=== PATIENT | male | born 1955 | race Caucasian/White ===

== ENCOUNTER → 2020-06-13 14:09 | Outpatient (BNVA) | payer OTHER, SELFPAY | PROVIDERS: PCP Internal Medicine; Visit Provider Urology | DX: Z76.89 Persons encountering health services in other specified circumstances (principal) ==

== ENCOUNTER → 2020-12-12 15:18 | Outpatient (BNVA) | payer OTHER, MEDICARE, SELFPAY | PROVIDERS: PCP Internal Medicine; Visit Provider Urology | DX: N40.1 Benign prostatic hyperplasia with lower urinary tract symptoms (principal); R39.12 Poor urinary stream; R35.1 Nocturia; N13.8 Other obstructive and reflux uropathy | CPT/HCPCS: 51798 ==

== ENCOUNTER → 2022-01-21 14:46 | Outpatient (BNVA) | payer OTHER, MEDICARE, SELFPAY | PROVIDERS: PCP Internal Medicine; Visit Provider Urology | DX: N40.1 Benign prostatic hyperplasia with lower urinary tract symptoms (principal); N13.8 Other obstructive and reflux uropathy; R39.12 Poor urinary stream; R35.1 Nocturia | CPT/HCPCS: 51798 ==

== ENCOUNTER 2023-01-21 14:43 | Outpatient (AMB) | payer OTHER, MEDICARE, SELFPAY ==
--- NOTE | 2023-01-21 14:57 | MHC.OFFVIS ---
Intake Intake Visit Reasons: 1 year follow up PVR Intake Note: Patient is present for PVR/ Urology Med: Finasteride, Terazosin, Antibiotic Allergy:Penicillin Blood Thinner: Warfarin PVR: 0ml Allergies lactose Allergy (Unknown, Verified 01/21/22 14:53) Unknown penicillin V Allergy (Unknown, Verified 01/21/22 14:53) Unknown Medication List - Last Reconciled 01/21/23 by Balta Colbert MD atorvastatin 80 mg PO BEDTIME diltiazem HCl ER 360 mg PO DAILY finasteride 5 mg PO DAILY 90 days gabapentin 600 mg PO TID gemfibrozil 600 mg PO BID levothyroxine 125 mcg PO DAILY metoprolol succinate ER 150 mg PO BID nortriptyline 75 mg PO BEDTIME pantoprazole 40 mg PO DAILY terazosin 5 mg PO BEDTIME 90 days triamcinolone acetonide 0.1% appl topical TID triamcinolone acetonide 0.025% appl topical warfarin 5 mg PO DAILY HPI HPI Comments History of Present Illness Details Sherif is a pleasant male. He is a patient of Dr. Raya. He is seen for the following urologic conditions - lower urinary tract symptoms PVR 0cc continues with combination therapy Main issue today is constipation - discussed MiraLax bowel prep used in colonoscopy Lower Urinary Tract Symptoms: Current visit is for further evaluation of, lower urinary tract symptoms, predominate obstructive symptoms. Current treatment includes medication - finasteride 5mg. Prior treatments include medication. Prostate Symptom Score Moderate (9-19), Bother 3. Symptoms include incomplete emptying, weak stream, urgency, and are stable. Results from testing include cystoscopy apple shaped intrusion 07/16 Prior Prostate Score moderate. PSA 03/12 0.3, 08/15 0.3, 01/17 0.3 - PSA less than one. Chance of lifetime prostate cancer less than 1%. Would only check every 5 years. Prostate volume 30-50gm. Testing at next visit will include PVR Review of Systems Const Denies chills and Denies fever(s) Card Reports no additional complaints and Denies syncope Resp Denies cough GI Denies abdominal pain and Denies heartburn Reports as per HPI and Denies change in libido Neuro Denies syncope Psych Denies change in libido Endo Denies change in libido Physical Exam Const General: cooperative, healthy appearing, comfortable and no acute distress Orientation/consciousness: patient oriented x3 HEENT Face and sinus: Yes normal facial exam Mouth: moist mucous membranes Neck Neck: Yes normal visual inspection, Yes full ROM and Yes trachea midline Chest Chest palpation & inspection: normal inspection of the chest Resp Effort & Inspection: normal respiratory effort, able to speak in complete sentences and no respiratory distress GI Inspection: Yes normal to inspection Back/Spine/Pelvis Cervical Spine: normal cervical lordosis Thoracic/Lumbar Spine: thoracic and lumbar spine normal to inspection Skin General skin exam: no rashes or lesions noted Neuro General: patient oriented x3, gait normal, tone normal and moves all extremities Extrem General: Yes normal to inspection and Yes capillary refill normal Office Procedures Post Void Residual Post Residual Void Post Void Residual (PVR): 0 [id number] Void Residual by ultrasound Results AMB Urinalysis, Automated UA Leukoctes 0 Alicia/uL Last Edit by Zelda Michelle [facility] on 01/21/23 15:13 UA Nitrite Negative Last Edit by Zelda Michelle A on 01/21/23 15:13 UA Urobilinogen 0.2 mg/dL Last Edit by Zelda Michelle [facility] on 01/21/23 15:13 UA Protein 15 mg/dL Last Edit by Zelda Michelle A on 01/21/23 15:13 UA pH 6.5 Last Edit by Zelda Michelle [facility] on 01/21/23 15:13 UA Blood 0 Vinny/uL Last Edit by Zelda Michelle A on 01/21/23 15:13 UA Specific [place] 1.010 Last Edit by Zelda Michelle [facility] on 01/21/23 15:13 UA Ketone Negative Last Edit by Zelda Michelle [facility] on 01/21/23 15:13 UA Bilirubin 0 mg/dL Last Edit by Zelda Michelle A on 01/21/23 15:13 UA Glucose 0 mg/dL Last Edit by Zelda Michelle [facility] on 01/21/23 15:13 Results Reviewed Results Reviewed: Laboratory Last Values Urine pH (Auto) 6.5 01/21/23 15:12 Specific [place] (Auto) 1.010 01/21/23 15:12 Urine Protein (Auto) 15 mg/dL 01/21/23 15:12 Glucose (UA)(Auto) 0 mg/dL 01/21/23 15:12 Urine Ketones (Auto) Negative 01/21/23 15:12 Urine Blood (Auto) 0 Vinny/uL 01/21/23 15:12 Urine Nitrite (Auto) Negative 01/21/23 15:12 Urine Bilirubin (Auto) 0 mg/dL 01/21/23 15:12 Urine Urobilinogen (Auto) 0.2 mg/dL 01/21/23 15:12 Leukocyte Esterase (Auto) 0 Alicia/uL 01/21/23 15:12 Assessment & Plan Assessment & Plan (1) Weak urinary stream: Code(s): R39.12 - Poor urinary stream (2) Nocturia more than twice per night: Code(s): R35.1 - Nocturia (3) BPH w urinary obs/LUTS: Code(s): N40.1 - Benign prostatic hyperplasia with lower urinary tract symptoms; N13.8 - Other obstructive and reflux uropathy Plan 6 month follow-up Orders: Orders AMB Urinalysis Automated Today Z13.9 - Encounter for screening, unspecified AMB Post Void Residual by ultrasound Today N13.8 - Other obstructive and reflux uropathy, N40.1 - Benign prostatic hyperplasia with lower urinary tract symptoms Medications: Changed From finasteride 5 mg PO DAILY To finasteride 5 mg PO DAILY 90 tabs 1RF 90 days Refilled terazosin 5 mg PO BEDTIME 90 caps 1RF 90 days N13.8 - Other obstructive and reflux uropathy, N40.1 - Benign prostatic hyperplasia with lower urinary tract symptoms Patient Instructions: Imaging studies, laboratory and physical exam results were discussed and reviewed in detail. No major barriers to patient understanding were identified. An opportunity to ask questions regarding the treatment plan was provided. All questions were answered. The patient expressed understanding and agreement with the above treatment plan. The patient is aware they should contact our office by phone for worsening of their current condition or the appearance of new urologic symptoms. Compliance is encouraged with any medications and followup testing that is ordered. It is a privilege to participate in the urologic care of your patient. If you have any questions or concerns regarding treatment for the above conditions, or other urologic issues, please do not hesitate to contact me. The office telephone contact is [phone]. This note is constructed using voice recognition software. While every effort has been made to ensure accuracy lpn instructor errors may have been included. Yours sincerely, Dr Balta Colbert MD, [facility] - Urology Providers of Expert, Compassionate Care for the Genitourinary System Coding Level of Care Code Est Pt Level 3 (42805) Diagnoses Weak urinary stream R39.12 Nocturia more than twice per night R35.1 BPH w urinary obs/LUTS N40.1; N13.8 CPT Codes Post Residual Void - PVR CPT Code: 04840-Tybl Void Residual by ultrasound ([id number])
== END 2023-01-21 15:43 | disposition home or self-care (01) ==
PROVIDERS: Visit Provider Urology
DX: N40.1 Benign prostatic hyperplasia with lower urinary tract symptoms (principal); R39.12 Poor urinary stream; R35.1 Nocturia; N13.8 Other obstructive and reflux uropathy
CPT/HCPCS: 99213

== ENCOUNTER → 2023-01-21 14:43 | Outpatient (BNVA) | payer OTHER, MEDICARE, SELFPAY | PROVIDERS: Visit Provider Urology | DX: R39.12 Poor urinary stream (principal); R35.1 Nocturia; N40.1 Benign prostatic hyperplasia with lower urinary tract symptoms | CPT/HCPCS: 51798 ==

== ENCOUNTER 2023-11-10 15:27 | Outpatient (AMB) | payer OTHER, MEDICARE, SELFPAY ==
--- NOTE | 2023-11-10 15:41 | A.OFFVIS_ITS ---
Intake Visit Reasons: follow up/PVR Intake Note: Patient is Present for PVR/ Urology Med: Finasteride, Terazosin Antibiotic Allergy: Penicillin Blood Thinner: Warfarin Last PVR: 0 Todays PVR: 0 Allergies lactose Allergy (Unknown, Verified 01/21/22 14:53) Unknown penicillin V Allergy (Unknown, Verified 01/21/22 14:53) Unknown Medication List - Last Reconciled 11/10/23 by Balta Colbert MD atorvastatin 80 mg PO BEDTIME diltiazem HCl ER 360 mg PO DAILY finasteride 5 mg PO DAILY 90 days gabapentin 600 mg PO TID gemfibrozil 600 mg PO BID levothyroxine 125 mcg PO DAILY metoprolol succinate ER 150 mg PO BID nortriptyline 75 mg PO BEDTIME pantoprazole 40 mg PO DAILY terazosin 5 mg PO BEDTIME 90 days triamcinolone acetonide 0.1% appl topical TID triamcinolone acetonide 0.025% appl topical warfarin 5 mg PO DAILY HPI Comments Details: Sherif is a pleasant male. He is a patient of Dr. Raya. He is seen for the following urologic conditions - lower urinary tract symptoms Continues with combination therapy May try coming off terazosin Upcoming hip replacement Minimal symptoms with urination Lower Urinary Tract Symptoms: Current visit is for further evaluation of, lower urinary tract symptoms, predominate obstructive symptoms. Current treatment includes medication - finasteride 5mg terazosin 5 mg Prior treatments include medication. Prostate Symptom Score Moderate (9-19), Bother 3. Symptoms include incomplete emptying, weak stream, urgency, and are stable. Results from testing include cystoscopy apple shaped intrusion 07/16 Prior Prostate Score moderate. PSA 03/12 0.3, 08/15 0.3, 01/17 0.3 - PSA less than one. Chance of lifetime prostate cancer less than 1%. Would only check every 5 years. Prostate volume 30-50gm. Testing at next visit will include PVR Review of Systems Const Denies chills and Denies fever(s) Card Reports no additional complaints and Denies syncope Resp Denies cough GI Denies abdominal pain and Denies heartburn Reports as per HPI and Denies change in libido Neuro Denies syncope Psych Denies change in libido Endo Denies change in libido Physical Exam Const General: cooperative, healthy appearing, comfortable and no acute distress Orientation/consciousness: patient oriented x3 HEENT Face and sinus: Yes normal facial exam Mouth: moist mucous membranes Neck Neck: Yes normal visual inspection, Yes full ROM and Yes trachea midline Chest Chest palpation & inspection: normal inspection of the chest Resp Effort & Inspection: normal respiratory effort, able to speak in complete sentences and no respiratory distress GI Inspection: Yes normal to inspection Back/Spine/Pelvis Cervical Spine: normal cervical lordosis Thoracic/Lumbar Spine: thoracic and lumbar spine normal to inspection Skin General skin exam: no rashes or lesions noted Neuro General: patient oriented x3, gait normal, tone normal and moves all extremities Extrem General: Yes normal to inspection and Yes capillary refill normal Office Procedures Post Void Residual Post Residual Void Post Void Residual (PVR): 0 [id number]-[id number] Void Residual by ultrasound Assessment & Plan Assessment & Plan (1) BPH w urinary obs/LUTS: Code(s): N40.1 - Benign prostatic hyperplasia with lower urinary tract symptoms; N13.8 - Other obstructive and reflux uropathy Category: Medical (2) Nocturia more than twice per night: Code(s): R35.1 - Nocturia Category: Medical Plan Twelve month follow-up Orders: Orders AMB Post Void Residual by ultrasound Today N13.8 - Other obstructive and reflux uropathy, N40.1 - Benign prostatic hyperplasia with lower urinary tract symptoms Prostate Specific Antigen 364 Days N13.8 - Other obstructive and reflux uropathy, N40.1 - Benign prostatic hyperplasia with lower urinary tract symptoms Medications: Refilled terazosin 5 mg PO BEDTIME 90 days 90 caps 3RF N13.8 - Other obstructive and reflux uropathy, N40.1 - Benign prostatic hyperplasia with lower urinary tract symptoms finasteride 5 mg PO DAILY 90 days 90 tabs 3RF N13.8 - Other obstructive and reflux uropathy, N40.1 - Benign prostatic hyperplasia with lower urinary tract symptoms Patient Instructions: Imaging studies, laboratory and physical exam results were discussed and reviewed in detail. No major barriers to patient understanding were identified. An opportunity to ask questions regarding the treatment plan was provided. All questions were answered. The patient expressed understanding and agreement with the above treatment plan. The patient is aware they should contact our office by phone for worsening of their current condition or the appearance of new urologic symptoms. Compliance is encouraged with any medications and followup testing that is ordered. It is a privilege to participate in the urologic care of your patient. If you have any questions or concerns regarding treatment for the above conditions, or other urologic issues, please do not hesitate to contact me. The office telephone contact is [phone]. This note is constructed using voice recognition software. While every effort has been made to ensure accuracy supervisor electrolytic tinning errors may have been included. Yours sincerely, Dr Balta Colbert MD, [facility] - Urology Providers of Expert, Compassionate Care for the Genitourinary System Coding Level of Care Code Est Pt Level 4 (97267) Diagnoses BPH w urinary obs/LUTS N40.1; N13.8 Nocturia more than twice per night R35.1 CPT Codes Post Residual Void - PVR CPT Code: 43086-Azlk Void Residual by ultrasound ([id number])
== END 2023-11-10 16:13 | disposition home or self-care (01) ==
PROVIDERS: PCP Internal Medicine; Visit Provider Urology
DX: N40.1 Benign prostatic hyperplasia with lower urinary tract symptoms (principal); N13.8 Other obstructive and reflux uropathy; R35.1 Nocturia
CPT/HCPCS: 99214

== ENCOUNTER → 2023-11-10 15:27 | Outpatient (BNVA) | payer OTHER, MEDICARE, SELFPAY | PROVIDERS: PCP Internal Medicine; Visit Provider Urology | DX: N40.1 Benign prostatic hyperplasia with lower urinary tract symptoms (principal); N13.8 Other obstructive and reflux uropathy; R35.1 Nocturia; Z79.899 Other long term (current) drug therapy | CPT/HCPCS: 51798 ==

== ENCOUNTER 2024-11-09 15:41 | Outpatient (AMB) | payer OTHER, MEDICARE, SELFPAY ==
--- NOTE | 2024-11-09 15:46 | MHC.OFFVIS ---
Intake Visit Reasons: 1yr follow up Intake Note: Patient is Present for 1Y F/U Urology Med: Finasteride, Terazosin Antibiotic Allergy: Penicillin Blood Thinner: Warfarin It Trainer Required: No Allergies lactose Allergy (Unknown, Verified 11/09/24 15:48) Unknown penicillin V Allergy (Unknown, Verified 11/09/24 15:48) Unknown HPI Comments Details: Sherif is a pleasant male. He is a patient of Dr. Raya. He is seen for the following urologic conditions - lower urinary tract symptoms Continues with combination therapy Coming off terazosin not successful Lower Urinary Tract Symptoms: Current visit is for further evaluation of, lower urinary tract symptoms, predominate obstructive symptoms. Current treatment includes medication - finasteride 5mg terazosin 5 mg Prior treatments include medication. Prostate Symptom Score Moderate (9-19), Bother 3. Symptoms include incomplete emptying, weak stream, urgency, and are stable. Results from testing include cystoscopy apple shaped intrusion 07/16 Prior Prostate Score moderate. PSA 03/12 0.3, 08/15 0.3, 01/17 0.3 - PSA less than one. Chance of lifetime prostate cancer less than 1%. Would only check every 5 years. Prostate volume 30-50gm. Testing at next visit will include PVR Review of Systems Const Denies chills and Denies fever(s) Card Reports no additional complaints and Denies syncope Resp Denies cough GI Denies abdominal pain and Denies heartburn Reports as per HPI and Denies change in libido Neuro Denies syncope Psych Denies change in libido Endo Denies change in libido Physical Exam Const General: cooperative, healthy appearing, comfortable and no acute distress Orientation/consciousness: patient oriented x3 HEENT Face and sinus: Yes normal facial exam Mouth: moist mucous membranes Neck Neck: Yes normal visual inspection, Yes full ROM and Yes trachea midline Chest Chest palpation & inspection: normal inspection of the chest Resp Effort & Inspection: normal respiratory effort, able to speak in complete sentences and no respiratory distress GI Inspection: Yes normal to inspection Back/Spine/Pelvis Cervical Spine: normal cervical lordosis Thoracic/Lumbar Spine: thoracic and lumbar spine normal to inspection Skin General skin exam: no rashes or lesions noted Neuro General: patient oriented x3, gait normal, tone normal and moves all extremities Extrem General: Yes normal to inspection and Yes capillary refill normal Results AMB Urinalysis, Automated UA Leukoctes 0 Alicia/uL Last Edit by Evens Mcdaniels [facility] on 11/09/24 15:59 UA Nitrite Negative Last Edit by Evens Mcdaniels [facility] on 11/09/24 15:59 UA Urobilinogen 0.2 mg/dL Last Edit by Evens Mcdaniels [facility] on 11/09/24 15:59 UA Protein 15 mg/dL Last Edit by Evens Mcdaniels [facility] on 11/09/24 15:59 UA pH 6.0 Last Edit by Evens Mcdaniels, [facility] on 11/09/24 15:59 UA Blood 0 Vinny/uL Last Edit by Evens Mcdaniels [facility] on 11/09/24 15:59 UA Specific [place] 1.010 Last Edit by Evens Mcdaniels [facility] on 11/09/24 15:59 UA Ketone Negative Last Edit by Evens Mcdaniels [facility] on 11/09/24 15:59 UA Bilirubin 0 mg/dL Last Edit by Evens Mcdaniels [facility] on 11/09/24 15:59 UA Glucose 0 mg/dL Last Edit by Evens Mcdaniels [facility] on 11/09/24 15:59 Results Reviewed Results Reviewed: Laboratory Last Values Urine pH (Auto) 6.0 11/09/24 15:58 Specific [place] (Auto) 1.010 11/09/24 15:58 Urine Protein (Auto) 15 mg/dL 11/09/24 15:58 Glucose (UA)(Auto) 0 mg/dL 11/09/24 15:58 Urine Ketones (Auto) Negative 11/09/24 15:58 Urine Blood (Auto) 0 Vinny/uL 11/09/24 15:58 Urine Nitrite (Auto) Negative 11/09/24 15:58 Urine Bilirubin (Auto) 0 mg/dL 11/09/24 15:58 Urine Urobilinogen (Auto) 0.2 mg/dL 11/09/24 15:58 Leukocyte Esterase (Auto) 0 Alicia/uL 11/09/24 15:58 Assessment & Plan Assessment & Plan (1) Nocturia more than twice per night: Code(s): R35.1 - Nocturia Category: Medical (2) BPH w urinary obs/LUTS: Code(s): N40.1 - Benign prostatic hyperplasia with lower urinary tract symptoms; N13.8 - Other obstructive and reflux uropathy Category: Medical Plan One year follow-up Orders: Orders AMB Urinalysis Automated Today Z13.9 - Encounter for screening, unspecified Medications: Refilled terazosin 5 mg PO BEDTIME 90 days 90 caps 3RF N13.8 - Other obstructive and reflux uropathy, N40.1 - Benign prostatic hyperplasia with lower urinary tract symptoms finasteride 5 mg PO DAILY 90 days 90 tabs 3RF N13.8 - Other obstructive and reflux uropathy, N40.1 - Benign prostatic hyperplasia with lower urinary tract symptoms Patient Instructions: This note is constructed using voice recognition software. While every effort has been made to ensure accuracy modeling director errors may have been included. Imaging studies, laboratory and physical exam results were discussed and reviewed in detail. No major barriers to patient understanding were identified. An opportunity to ask questions regarding the treatment plan was provided. All questions were answered. The patient expressed understanding and agreement with the above treatment plan. The patient is aware they should contact our office by phone for worsening of their current condition or the appearance of new urologic symptoms. Compliance is encouraged with any medications and followup testing that is ordered. It is a privilege to participate in the urologic care of your patient. If you have any questions or concerns regarding treatment for the above conditions, or other urologic issues, please do not hesitate to contact me. The office telephone contact is [phone]. Sincerely, Dr Balta Colbert MD, [facility] - Urology Compassionate Specialist Care for the Genitourinary System Coding Level of Care Code Est Pt Level 4 (75269) Complex EM visit Add On G2211 Diagnoses Nocturia more than twice per night R35.1 BPH w urinary obs/LUTS N40.1; N13.8
== END 2024-11-09 16:52 | disposition home or self-care (01) ==
LOC: HO.HUSH 15:42
PROVIDERS: PCP Internal Medicine; Visit Provider Urology
DX: N40.1 Benign prostatic hyperplasia with lower urinary tract symptoms (principal); R35.1 Nocturia; N13.8 Other obstructive and reflux uropathy; Z13.9 Encounter for screening, unspecified
CPT/HCPCS: 99214

== ENCOUNTER → 2024-11-09 15:41 | Outpatient (BNVA) | payer OTHER, MEDICARE, SELFPAY | PROVIDERS: PCP Internal Medicine; Visit Provider Urology | DX: N40.1 Benign prostatic hyperplasia with lower urinary tract symptoms (principal); N13.8 Other obstructive and reflux uropathy; R35.1 Nocturia | CPT/HCPCS: 81003 ==

== ENCOUNTER → 2025-01-31 10:17 | Outpatient (BNVA) | payer OTHER, MEDICARE, SELFPAY | PROVIDERS: PCP Internal Medicine; Visit Provider Urology | DX: N40.1 Benign prostatic hyperplasia with lower urinary tract symptoms (principal); N13.8 Other obstructive and reflux uropathy | CPT/HCPCS: 51798 ==

== ENCOUNTER 2025-03-21 14:38 | Outpatient (AMB) | payer OTHER, MEDICARE, SELFPAY ==
--- NOTE | 2025-03-21 14:35 | A.OFFVIS_ITS ---
Intake Visit Reasons: 6w/PVR Intake Note: Patient is Present for 6 wk F/U Urology Med: Finasteride, Terazosin Antibiotic Allergy: Penicillin Blood Thinner: Warfarin PVR:184 mls Selector Packer Required: No Accompanied by: Spouse Allergies lactose Allergy (Unknown, Verified 03/21/25 14:36) Unknown penicillin V Allergy (Unknown, Verified 03/21/25 14:36) Unknown HPI Comments Details: Sherif is a pleasant male. He is a patient of Dr. Raya. He is seen for the following urologic conditions - lower urinary tract symptoms Accompanied by his Remains on combination therapy with good effect for bladder emptying Main issue is 1 of occasional urgency after sitting for a number of hours Suggest he try double voiding and going every 3 hours despite having minimal urge PSA remains extremely low for age Follow-up 12 month Lower Urinary Tract Symptoms: Current visit is for further evaluation of, lower urinary tract symptoms, predominate obstructive symptoms. Current treatment includes medication - finasteride 5mg terazosin 5 mg Prior treatments include medication. Prostate Symptom Score Moderate (9-19), Bother 3. Symptoms include incomplete emptying, weak stream, urgency, and are stable. Results from testing include cystoscopy apple shaped intrusion 07/16 Prior Prostate Score moderate. PSA 03/12 0.3, 08/15 0.3, 01/17 0.3, 01/20 0.2 - PSA less than one. Chance of lifetime prostate cancer less than 1%. Would only check every 5 years. Prostate volume 30-50gm. Testing at next visit will include PVR Review of Systems Const Denies chills and Denies fever(s) Card Reports no additional complaints and Denies syncope Resp Denies cough GI Denies abdominal pain and Denies heartburn Reports as per HPI and Denies change in libido Neuro Denies syncope Psych Denies change in libido Endo Denies change in libido Physical Exam Const General: cooperative, healthy appearing, comfortable and no acute distress Orientation/consciousness: patient oriented x3 HEENT Face and sinus: Yes normal facial exam Mouth: moist mucous membranes Neck Neck: Yes normal visual inspection, Yes full ROM and Yes trachea midline Chest Chest palpation & inspection: normal inspection of the chest Resp Effort & Inspection: normal respiratory effort, able to speak in complete sentences and no respiratory distress GI Inspection: Yes normal to inspection Back/Spine/Pelvis Cervical Spine: normal cervical lordosis Thoracic/Lumbar Spine: thoracic and lumbar spine normal to inspection Skin General skin exam: no rashes or lesions noted Neuro General: patient oriented x3, gait normal, tone normal and moves all extremities Extrem General: Yes normal to inspection and Yes capillary refill normal Office Procedures Post Void Residual Post Residual Void Post Void Residual (PVR): 184 13416-Lqst Void Residual by ultrasound Results AMB Urinalysis, Automated UA Leukoctes 0 Alicia/uL Last Edit by JACIEL Mandel on 03/21/25 15:09 UA Nitrite Negative Last Edit by Daija Miranda [facility] on 03/21/25 15:09 UA Urobilinogen 0.2 mg/dL Last Edit by Daija Miranda [facility] on 03/21/25 15:0 9 UA Protein 0 mg/dL Last Edit by Daija Miranda [facility] on 03/21/25 15:09 UA pH 6.5 Last Edit by Daija Miranda [facility] on 03/21/25 15:09 UA Blood 0 Vinny/uL Last Edit by JACIEL Mandel on 03/21/25 15:09 UA Specific [place] 1.010 Last Edit by Daija Miranda [facility] on 03/21/25 15: 09 UA Ketone Last Edit by Daija Miranda [facility] on 03/21/25 15:09 UA Bilirubin 0 mg/dL Last Edit by Daija Miranda [facility] on 03/21/25 15:09 UA Glucose 0 mg/dL Last Edit by Daija Miranda [facility] on 03/21/25 15:09 Assessment & Plan Assessment & Plan (1) Nocturia more than twice per night: Code(s): R35.1 - Nocturia Category: Medical (2) BPH w urinary obs/LUTS: Code(s): N40.1 - Benign prostatic hyperplasia with lower urinary tract symptoms; N13.8 - Other obstructive and reflux uropathy Category: Medical (3) Weak urinary stream: Code(s): R39.12 - Poor urinary stream Category: Medical Plan 12 month follow-up Orders: Orders AMB Urinalysis Automated Today Z13.9 - Encounter for screening, unspecified AMB Post Void Residual by ultrasound Today N13.8 - Other obstructive and reflux uropathy, N40.1 - Benign prostatic hyperplasia with lower urinary tract symptoms Patient Instructions: This note is constructed using voice recognition software. While every effort has been made to ensure accuracy therapeutic riding instructor errors may have been included. Imaging studies, laboratory and physical exam results were discussed and reviewed in detail. No major barriers to patient understanding were identified. An opportunity to ask questions regarding the treatment plan was provided. All questions were answered. The patient expressed understanding and agreement with the above treatment plan. The patient is aware they should contact our office by phone for worsening of their current condition or the appearance of new urologic symptoms. Compliance is encouraged with any medications and followup testing that is ordered. It is a privilege to participate in the urologic care of your patient. If you have any questions or concerns regarding treatment for the above conditions, or other urologic issues, please do not hesitate to contact me. The office telephone contact is [phone]. Sincerely, Dr Balta Colbert MD, NOEMI [facility] - Urology Compassionate Specialist Care for the Genitourinary System Coding Level of Care Code Est Pt Level 4 (71524) Complex EM visit Add On G2211 Diagnoses Nocturia more than twice per night R35.1 BPH w urinary obs/LUTS N40.1; N13.8 Weak urinary stream R39.12 CPT Codes Post Residual Void - PVR CPT Code: 96830-Iabi Void Residual by ultrasound ([id number])
--- OUTSIDE RECORDS SUMMARY | 2025-03-21 17:50 | XMS_ITS | Encounter Summary ---
Author Organization [facility] Address [address] [place] [address] Care Team Providers Care Comprehensive Advisor Name Role Phone Dereck Raya MD Primary Care Provider [phone] Encounter Details Date Type Department Care Team (Late st Contact Info) Description 01/16/2025 Lab Requisition [facility] - Main Lab [address] [facility] [place] [address] Raciel Bailey MD [address] [place] [address] Anemia, unspecified Social History Tobacco Use Types Packs/Day Years Used Date Smoking Tobacco: Every Day Smokeless Tobacco: Never Alcohol Use Standard Drinks/Week Comments Never 0 (1 standard drink = 0.6 oz pur e alcohol) Sex and Gender Information Value Date Recorded Sex Assigned at Not on file Legal Sex Male 9:58 PM EST Gender Identity Not on file Sexual Orientation Not on file documented as of this encounter Plan of Treatment Not on file documented as of this encounter Visit Diagnoses Diagnosis Anemia, unspecified documented in this encounter Care Teams Comprehensive Advisor Relationship Specialty Start Date End Date Dereck Raya MD [address] [place] [id number] PCP - General Internal Medicine 11/25/24 documented as of this encounter
--- OUTSIDE RECORDS SUMMARY | 2025-03-21 17:50 | XMS_ITS | Encounter Summary ---
Author Organization [facility] Address [address] [place] [address] Care Team Providers Care Pastry Mixer Name Role Phone Dereck Raya MD Primary Care Provider [phone] Encounter Details Date Type Department Care Team (Late st Contact Info) Description 01/11/[address] [facility] - Main Lab [address] [facility] [place] [address] Raciel Bailey MD [address] [place] [id number] Unspecified atrial fibrillation (CMS/HCC V24, CMS/HCC V28) Social History Tobacco Use Types Packs/Day Years [...] on file documented as of this encounter Procedures Procedure Name Priority Date/Time Associated Diagnosis Comments PROTHROMBIN TIME WITH INR Routine 01/12/2025 7:57 AM EDT Unspecified atrial fibrillation (CMS/HCC V24, CMS/HCC V28) documented in this encounter Results * (ABNORMAL) Prothrombin time with INR (01/12/2025 7:57 AM EDT) Protime 28.9(H) 10.6 - 13.9 sec LAB COAGULATION METHOD 01/12/2025 10:37 AM EDT [facility] INR 2.3 LAB COAGULATION METHOD 01/12/2025 10:37 AM EDT [facility] Blood Venous blood specimen / Unknown Venipuncture / Unknown 01/12/2025 7:57 AM EDT 01/12/2025 9:35 AM EDT us Raciel Bailey MD LAB BLOOD ORDERABLES Final Result [facility] [address] [place] [address], documented in this encounter Visit Diagnoses Diagnosis Unspecified atrial fibrillation (CMS/HCC V24, CMS/HCC V28) documented in this encounter Care Teams Pastry Mixer Relationship Specialty Start Date End Date Dereck Raya MD [address] [place] [address] PCP - General Internal Medicine 11/25/24 documented as of this encounter
--- OUTSIDE RECORDS SUMMARY | 2025-03-21 17:50 | XMS_ITS | Encounter Summary ---
Author Organization [facility] Address [address] [place] [address] Care Team Providers Care Air Conditioning Coil Assembler Name Role Phone Dereck Raya MD Primary Care Provider [phone] Encounter Details Date Type Department Care Team (Late st Contact Info) Description 01/10/2025 Lab Requisition [facility] - Main Lab [address] [facility] [place] [address] Raciel Bailey MD [address] [place] [id number] Anemia, unspecified Social History Tobacco Use Types [...] Diagnosis Comments PROTHROMBIN TIME WITH INR Routine 01/10/2025 7:43 AM EDT Anemia, unspecified COMPLETE BLOOD COUNT Routine 01/10/2025 7:43 AM EDT Anemia, unspecified COMPREHENSIVE METABOLIC PANEL Routine 01/10/2025 7:43 AM EDT Anemia, unspecified documented in this encounter Results * (ABNORMAL) Prothrombin time with INR (01/10/2025 7:43 AM EDT) [facility] Protime 19.0(H) 10.6 - 13.9 sec LAB COAGULATION METHOD 01/10/2025 9:37 AM EDT [facility] INR 1.5 LAB COAGULATION METHOD 01/10/2025 9:37 AM EDT [facility] Blood Venous blood specimen / Unknown Venipuncture / Unknown 01/10/2025 7:43 AM EDT 01/10/2025 9:10 AM EDT Raciel Bailey MD LAB BLOOD ORDERABLES Final Result [facility] [address] [place] [address], [place] [phone] * (ABNORMAL) Comprehensive metabolic panel (01/10/2025 7:43 AM EDT) [facility] Sodium 138 133 - 145 mmol/L LAB CHEMISTRY METHOD 01/10/2025 10:25 AM [facility] Potassium 4.7 3.5 - 5.5 mmol/L LAB CHEMISTRY METHOD 01/10/2025 10:25 AM [facility] Chloride 104 96 - 110 mmol/L LAB CHEMISTRY METHOD 01/10/2025 10:25 AM [facility] CO2 29 21 - 32 mmol/L LAB CHEMISTRY METHOD 01/10/2025 10:25 AM [facility] Anion Gap 5 3 - 11 LAB CHEMISTRY METHOD 01/10/2025 10:25 AM [facility] Glucose 82 70 - 100 mg/dL LAB CHEMISTRY METHOD 01/10/2025 10:25 AM [facility] BUN 10 5 - 25 mg/dL LAB CHEMISTRY METHOD 01/10/2025 10:25 AM [facility] Creatinine 0.81 0.70 - 1.30 mg/dL LAB CHEMISTRY METHOD 01/10/2025 10:25 AM [facility] eGFR 94 >=60 mL/min/1. 73m2 LAB CHEMISTRY METHOD 01/10/2025 10:25 AM [facility] Comment:Calculation based on the Chronic Kidney Disease Epidemiology Collaboration (CKD-EPI) equation refit without adjustment for race. BUN/Creatinine Ratio 12.3 LAB CHEMISTRY METHOD 01/10/2025 10:25 AM [facility] Calcium 9.1 8.5 - 10.5 mg/dL LAB CHEMISTRY METHOD 01/10/2025 10:25 AM [facility] AST (SGOT) 67(H) 10 - 42 unit/L LAB CHEMISTRY METHOD 01/10/2025 10:25 AM [facility] ALT (SGPT) 52 10 - 60 unit/L LAB CHEMISTRY METHOD 01/10/2025 10:25 AM [facility] Alkaline Phosphatase 81 42 - 121 unit/L LAB CHEMISTRY METHOD 01/10/2025 10:25 AM [facility] Total Protein 5.6(L) 6.0 - 8.0 g/dL LAB CHEMISTRY METHOD 01/10/2025 10:25 AM [facility] Albumin 2.9(L) 3.2 - 5.0 g/dL LAB CHEMISTRY METHOD 01/10/2025 10:25 AM [facility] Total Bilirubin 0.4 0.0 - 1.4 mg/dL LAB CHEMISTRY METHOD 01/10/2025 10:25 AM [facility] Blood Venous blood specimen / Unknown Venipuncture / Unknown 01/10/2025 7:43 AM EDT 01/10/2025 9:10 AM EDT us Raciel Bailey MD LAB BLOOD ORDERABLES Final Result [facility] [address] [place] [address], [place] [phone] * (ABNORMAL) Complete blood count (01/10/2025 7:43 AM EDT) [facility] WBC 6.3 4.8 - 10.8 K/mcL LAB HEMETOLOGY METHOD 01/10/2025 9:34 AM [facility] RBC 2.80(L) 4.50 - 5.50 M/mcL LAB HEMETOLOGY METHOD 01/10/2025 9:34 AM EDT [facility] Hemoglobin 8.8(L) 13.5 - 17.5 g/dL LAB HEMETOLOGY METHOD 01/10/2025 9:34 AM [facility] Hematocrit 27.0(L) 42.0 - 54.0 % LAB HEMETOLOGY METHOD 01/10/2025 9:34 AM [facility] MCV 96.1 79.0 - 98.0 FL LAB HEMETOLOGY METHOD 01/10/2025 9:34 AM [facility] MCH 31.3 27.0 - 32.0 pcg LAB HEMETOLOGY METHOD 01/10/2025 9:34 AM [facility] MCHC 32.6 32.0 - 37.0 g/dL LAB HEMETOLOGY METHOD 01/10/2025 9:34 AM [facility] RDW 13.1 11.0 - 15.0 % LAB HEMETOLOGY METHOD 01/10/2025 9:34 AM [facility] Platelets 282 130 - 400 K/mcL LAB HEMETOLOGY METHOD 01/10/2025 9:34 AM [facility] MPV 10.6 7.0 - 11.0 FL LAB HEMETOLOGY METHOD 01/10/2025 9:34 AM [facility] NRBC 0.0 <1.0 % LAB HEMETOLOGY METHOD 01/10/2025 9:34 AM EDT [facility] NRBC Absolute 0.00 <0.10 K/mcL LAB HEMETOLOGY METHOD 01/10/2025 9:34 AM EDT [facility] Blood Venous blood specimen / Unknown Venipuncture / Unknown 01/10/2025 7:43 AM EDT 01/10/2025 9:10 AM EDT us Raciel Bailey MD LAB BLOOD ORDERABLES Final Result [facility] [address] [place] [address], documented in this encounter Visit Diagnoses Diagnosis Anemia, unspecified documented in this encounter Care Teams Air Conditioning Coil Assembler Relationship Specialty Start Date End Date Dereck Raya MD [address] [place] [address] PCP - General Internal Medicine 11/25/24 documented as of this encounter
--- OUTSIDE RECORDS SUMMARY | 2025-03-21 17:50 | XMS_ITS | Clinical Summary ---
Author Organization [facility] Address [address] [place] [address] Care Team Providers Care Marine Water Tender Name Role Phone Dereck Raya Primary Care Provider [phone] Allergies No known active allergies Medications No known medications Social History Tobacco Use Types Packs/Day Years Used Date Smoking Tobacco: Never Assessed Sex and Gender Information Value Date Recorded Sex Assigned at Male 06/17/2024 4:56 PM EST Legal Sex Male 11:39 AM EST Gender Identity Not on file Sexual Orientation Not on file Plan of Treatment Health Maintenance Due Date Last Done Comments Cologuard 1955 Colon Cancer Screening 1955 Colonoscopy 1953 FOBT / Fit Test 1955 Sigmoidoscopy 1953 DTaP,Tdap,and Td Vaccines (1 - Tdap) 1975 Zoster Vaccines (1 of 2) 2003 Pneumococcal Vaccine: 50+ Years (2 of 2 - PCV) 03/22/2022 03/22/2021 Alcohol/Substance Use Screening 06/29/2024 Health Care Proxy Review 06/29/2024 COVID-19 Vaccine ( season) 2025 04/13/2023, 05/14/2022, 10/25/2021, Additional history exists Influenza Vaccine (#1) 2025 , 03/14/2023, 04/29/2022, Additional history exists RSV Vaccine (60+ years old and patients) (1 - 1-dose 75+ series) 2028 Hepatitis B Vaccines Aged Out No long er eligible based on patient's age to complete this topic Insurance [facility] [place] [phone] Care Teams Marine Water Tender Relationship Specialty Start Date End Date Dereck Raya [address] [place] [address] PCP - General Internal Medicine 06/17/24
--- OUTSIDE RECORDS SUMMARY | 2025-03-21 17:50 | XMS_ITS | Clinical Summary ---
Author Organization [address] [facility] Address [address] [place] [address] Phone Care Team Providers Care Account Support Associate Name Role Phone Dereck Raya MD Primary Care Provider [phone] Encounters Date Type Department Care Team Description 01/16/2025 Lab Requisition [facility] Lab [address] [place] [phone] Raciel Bailey MD Anemia, unspecified 01/11/2025 Lab Requisition [facility] [address] [place] [phone] Raciel Bailey MD Unspecified atrial fibrillation (CMS/HCC V24, CMS/HCC V28) 01/10/2025 Lab Requisition [facility] Lab [address] [place] [phone] Raciel Bailey MD Anemia, unspecified 12/19/2024 Telephone [facility] [address] [place] [address] Dereck Raya MD from Last 3 Months Surgical History Surgery Date Site/Laterality Comments COLONOSCOPY 05/02/2013 PROCEDURE: HISTORICAL COLONOSCOPY; COMMENT: diverticulitis in the sigmoid colon BACK SURGERY PROCEDURE: HISTORICAL BACK SURGERY LUMBAR LAMINECTOMY 09/21/2007 PROCEDURE: HISTORICAL LUMB LAMINECTOMY; COMMENT: Decompression at L4-L5 Medical History Medical History Date Comments Hypothyroidism DX:Hypothyroidis m Depression DX:Depression GERD (gastroesophageal reflux disease) DX:GERD (gastroesophageal reflux disease) Tobacco abuse DX:Tobacco abuse BPH (benign prostatic hyperplasia) DX:BPH (benign prostatic hyperplasia) Sleep apnea DX:Sleep apnea; COMMENT: CPAP auto titrate 7-12 cm H2O A-fib (CMS/HCC V24, CMS/HCC V28) DX:A-fib (HCC) Constipation DX:Constipation Tubular adenoma of colon DX:Tubu lar adenoma of colon Diverticulosis DX:Diverticulosi s Family History Medical History Relation Name Comments Diabetes Father Other: Heart Disease Father Other: Cancer Mother Relation Name Status Comments Father Mother Sister Alive Social History Tobacco Use Types Packs/Day Years Used Date Smoking Tobacco: Every Day Smokeless Tobacco: Never Alcohol Use Standard Drinks/Week Comments Never 0 (1 standard drink = 0.6 oz pur e alcohol) Sex and Gender Information Value Date Recorded Sex Assigned at Not on file Legal Sex Male 9:58 PM EST Gender Identity Not on file Sexual Orientation Not on file Obstetrics History Last Filed Vital Signs Vital Sign Reading Time Taken Comments Blood Pressure 134/77 08/18/2023 2:00 PM EST Sit ting L Arm Pulse 85 08/18/2023 2:00 PM EST Temperature - - Respiratory Rate - - Oxygen Saturation - - Inhaled Oxygen Concentration - - Weight 90.7 kg (200 lb) 08/18/2023 2:00 PM EST Height 175.3 cm (5' 9 ) 08/18/2023 2:00 PM EST Body Mass Index 29.53 08/18/2023 2:00 PM EST Plan of Treatment Health Maintenance Due Date Last Done Comments DTaP,Tdap,and Td Vaccines (1 - Tdap) 1972 Pneumococcal Vaccine: 50+ Ye ars (1 of 2 - PCV) 1972 Zoster Vaccines (1 of 2) 2003 Abdominal Aortic Aneurysm (A AA) Screen 06/08/2022 Cholesterol Screening (Lipid Panel) 06/08/2022 Colorectal Cancer Screening: Colonoscopy 06/08/2022 Falls Risk Assessment 06/08/2022 Hepatitis C Screening 06/08/2022 Social Influencers of Health Screening 06/08/2022 Depression Screening 06/29/2024 COVID-19 Vaccine (1 - 2023-2 5 season) 2025 Influenza Vaccine (#1) 2025 Hypertension/CHF/CAD Annual BMP Blood Test 01/10/2026 01/10/2025 RSV Immunization Adult Patie nts (1 - 1-dose 75+ series) 2028 HIB Vaccines Aged Out No longer eligi ble based on patient's age to complete this topic HPV Vaccines Aged Out No longer eligi ble based on patient's age to complete this topic Hepatitis A Vaccines Aged Out No long er eligible based on patient's age to complete this topic Hepatitis B Vaccines Aged Out No long er eligible based on patient's age to complete this topic IPV Vaccines Aged Out No longer eligi ble based on patient's age to complete this topic MMR Vaccines Aged Out No longer eligi ble based on patient's age to complete this topic Meningococcal ACWY Vaccine Aged Out N o longer eligible based on patient's age to complete this topic Meningococcal B Vaccine Aged Out No l onger eligible based on patient's age to complete this topic RSV Immunization Patients Un charley 20 months Aged Out No longer eligible b ased on patient's age to complete this topic Varicella Vaccines Aged Out No longer eligible based on patient's age to complete this topic Procedures Procedure Name Priority Date/Time Associated Diagnosis Comments PROTHROMBIN TIME WITH INR Routine 01/12/2025 7:57 AM EDT Unspecified atrial fibrillation ([facility] V24, [facility] V28) PROTHROMBIN TIME WITH INR Routine 01/10/2025 7:43 AM EDT Anemia, unspecified COMPREHENSIVE METABOLIC PANEL Routine 01/10/2025 7:43 AM EDT Anemia, unspecified COMPLETE BLOOD COUNT Routine 01/10/2025 7:43 AM EDT Anemia, unspecified from Last 3 Months Results * (ABNORMAL) Prothrombin time with INR (01/12/2025 7:57 AM EDT) Only the most recent of2 resultswithin the time period is included. Protime 28.9(H) 10.6 - 13.9 sec LAB COAGULATION METHOD 01/12/2025 10:[address] [facility] INR 2.3 LAB COAGULATION METHOD 01/12/2025 10:[address] [facility] Blood Venous blood specimen / Unknown Venipuncture / Unknown 01/12/2025 7:57 AM EDT 01/12/2025 9:35 AM EDT Raciel Bailey MD LAB BLOOD ORDERABLES Final Result [facility] [address] [place] [address], * (ABNORMAL) Complete blood count (01/10/2025 7:43 AM EDT) WBC 6.3 4.8 - 10.8 K/mcL LAB HEMETOLOGY METHOD 01/10/2025 9:34 AM [facility] RBC 2.80(L) 4.50 - 5.50 M/mcL LAB HEMETOLOGY METHOD 01/10/2025 9:34 AM [facility] Hemoglobin 8.8(L) 13.5 - 17.5 g/dL LAB HEMETOLOGY METHOD 01/10/2025 9:34 AM [facility] Hematocrit 27.0(L) 42.0 - 54.0 % LAB HEMETOLOGY METHOD 01/10/2025 9:34 AM [facility] MCV 96.1 79.0 - 98.0 FL LAB HEMETOLOGY METHOD 01/10/2025 9:34 AM [facility] MCH 31.3 27.0 - 32.0 pcg LAB HEMETOLOGY METHOD 01/10/2025 9:34 AM [facility] MCHC 32.6 32.0 - 37.0 g/dL LAB HEMETOLOGY METHOD 01/10/2025 9:34 AM [facility] RDW 13.1 11.0 - 15.0 % LAB HEMETOLOGY METHOD 01/10/2025 9:34 AM [facility] Platelets 282 130 - 400 K/mcL LAB HEMETOLOGY METHOD 01/10/2025 9:[address] [facility] MPV 10.6 7.0 - 11.0 FL LAB HEMETOLOGY METHOD 01/10/2025 9:[address] [facility] NRBC 0.0 <1.0 % LAB HEMETOLOGY METHOD 01/10/2025 9:[address] [facility] NRBC Absolute 0.00 <0.10 K/mcL LAB HEMETOLOGY METHOD 01/10/2025 9:[address] [facility] Blood Venous blood specimen / Unknown Venipuncture / Unknown 01/10/2025 7:43 AM EDT 01/10/2025 9:10 AM EDT Raciel Bailey MD LAB BLOOD ORDERABLES Final Result [facility] [address] [place] [address], * (ABNORMAL) Comprehensive metabolic panel (01/10/2025 7:43 AM EDT) Sodium 138 133 - 145 mmol/L LAB CHEMISTRY METHOD 01/10/2025 10:25 AM [facility] Potassium 4.7 3.5 - 5.5 mmol/L LAB CHEMISTRY METHOD 01/10/2025 10:25 AM [facility] Chloride 104 96 - 110 mmol/L LAB CHEMISTRY METHOD 01/10/2025 10:25 AM [facility] CO2 29 21 - 32 mmol/L LAB CHEMISTRY METHOD 01/10/2025 10:25 AM [facility] Anion Gap 5 3 - 11 LAB CHEMISTRY METHOD 01/10/2025 10:25 AM [facility] Glucose 82 70 - 100 mg/dL LAB CHEMISTRY METHOD 01/10/2025 10:25 AM [facility] BUN 10 5 - 25 mg/dL LAB CHEMISTRY METHOD 01/10/2025 10:25 AM [facility] Creatinine 0.81 0.70 - 1.30 mg/dL LAB CHEMISTRY METHOD 01/10/2025 10:25 AM [facility] eGFR 94 >=60 mL/min/1. 73m2 LAB CHEMISTRY METHOD 01/10/2025 10:25 AM [facility] Comment:Calculation based on the Chronic Kidney Disease Epidemiology Collaboration (CKD-EPI) equation refit without adjustment for race. BUN/Creatinine Ratio 12.3 LAB CHEMISTRY METHOD 01/10/2025 10:25 AM [facility] Calcium 9.1 8.5 - 10.5 mg/dL LAB CHEMISTRY METHOD 01/10/2025 10:25 AM [facility] AST (SGOT) 67(H) 10 - 42 unit/L LAB CHEMISTRY METHOD 01/10/2025 10:25 AM [facility] ALT (SGPT) 52 10 - 60 unit/L LAB CHEMISTRY METHOD 01/10/2025 10:25 AM [facility] Alkaline Phosphatase 81 42 - 121 unit/L LAB CHEMISTRY METHOD 01/10/2025 10:25 AM [facility] Total Protein 5.6(L) 6.0 - 8.0 g/dL LAB CHEMISTRY METHOD 01/10/2025 10:25 AM [facility] Albumin 2.9(L) 3.2 - 5.0 g/dL LAB CHEMISTRY METHOD 01/10/2025 10:25 AM [facility] Total Bilirubin 0.4 0.0 - 1.4 mg/dL LAB CHEMISTRY METHOD 01/10/2025 10:25 AM [facility] Blood Venous blood specimen / Unknown Venipuncture / Unknown 01/10/2025 7:43 AM EDT 01/10/2025 9:10 AM EDT us Raciel Bailey MD LAB BLOOD ORDERABLES Final Result [facility] [address] [place] [address], [place] [phone] from Last 3 Months Insurance [facility] Care Teams Account Support Associate Relationship Specialty Start Date End Date Dereck Raya MD [address] [place] [address] PCP - General Internal Medicine 11/25/24
== END 2025-03-21 15:14 | disposition home or self-care (01) ==
LOC: HO.HUSH 14:38
PROVIDERS: PCP Internal Medicine; Visit Provider Urology
DX: N40.1 Benign prostatic hyperplasia with lower urinary tract symptoms (principal); R35.1 Nocturia; N13.8 Other obstructive and reflux uropathy; R39.12 Poor urinary stream; Z13.9 Encounter for screening, unspecified
CPT/HCPCS: 99214; G2211

== ENCOUNTER → 2025-03-21 14:38 | Outpatient (BNVA) | payer OTHER, MEDICARE, SELFPAY | PROVIDERS: PCP Internal Medicine; Visit Provider Urology | DX: N40.1 Benign prostatic hyperplasia with lower urinary tract symptoms (principal); R35.1 Nocturia; R39.12 Poor urinary stream; N13.8 Other obstructive and reflux uropathy | CPT/HCPCS: 51798; 81003 ==